=== PATIENT | female | born 1960 | race Two or more races ===

== ENCOUNTER 2019-10-29 08:54 | Day surgery (SDC) | payer MEDICAID ==
[2019-10-29] MEDS ORDERED: Sodium Chloride 0.9% 10 ML Syringe FLUSH PRN (09:00)
[2019-10-29] MEDS ORDERED: Lactated Ringers 1,000 ML IV SCH (09:00)
[2019-10-29] MEDS ORDERED: Midazolam 1 MG/ML 2 ML SDV ONE (09:41)
[2019-10-29] MEDS ORDERED: Propofol 200 MG/20 ML SDV ONE (09:41)
--- NOTE | 2019-10-29 09:46 | PCM.HPR ---
H & P Addendum review - H & P Addendum Review Date of Original H & P: 10/06/19 Date Reviewed: 10/29/19 Time Reviewed: 09:45 Patient was Examined: No Changes
[2019-10-29] MEDS ORDERED: Ondansetron 4 MG/2 ML SDV IVPUSH ONE (10:00)
--- NOTE | 2019-10-29 10:18 | PCM.OPNOTE ---
- General Post-Op/Procedure Note Date of Surgery/Procedure: 10/29/19 Operative Procedure(s): Colonoscopy Findings: Sig Tics Pre Op Diagnosis: Hx Polyps Post-Op Diagnosis: Same Anesthesia Technique: MAC Primary Surgeon: Bhanu Wade Anesthesia Provider: Magalie Alvarado Complications: None Condition: Good
--- NOTE | 2019-10-29 14:50 | OR ---
Date of Procedure: 10/29/2019 PREOPERATIVE DIAGNOSIS: History of colon polyps. POSTOPERATIVE DIAGNOSIS: Sigmoid diverticulosis. PROCEDURE: Colonoscopy. ANESTHESIA: IV sedation. DESCRIPTION OF PROCEDURE: The patient was brought to the procedure room where she was placed on her left side and IV sedation administered. Digital rectal exam was performed which was normal. Colonoscope was inserted and advanced to the level of the cecum with minimal difficulty getting through the ascending colon, requiring some pressure on the abdomen. Cecal position was confirmed by identifying the appendiceal lumen and ileocecal valve. Prep was good and surfaces were well visualized. Upon withdrawing the scope, the ascending, transverse, and descending colon were normal in appearance. Sigmoid colon had multiple diverticula present. Rectum was normal and retroflexion was normal. Air was removed and the scope withdrawn. The patient tolerated the procedure well and returned to Recovery in stable condition. Recommend surveillance colonoscopy again in 5 years. GILBERTO LOWE MD /[id number]
== END 2019-10-29 11:13 | disposition home or self-care (01) ==
LOC: LL.SDS 08:54
PROVIDERS: ATTEND Surgery
DX: Z12.11 Encounter for screening for malignant neoplasm of colon (principal); K57.30 Diverticulosis of large intestine without perforation or abscess without bleeding; I12.9 Hypertensive chronic kidney disease with stage 1 through stage 4 chronic kidney disease, or unspecified chronic kidney disease; N18.3 Chronic kidney disease, stage 3 (moderate); E03.9 Hypothyroidism, unspecified; E66.9 Obesity, unspecified; F33.0 Major depressive disorder, recurrent, mild; M17.12 Unilateral primary osteoarthritis, left knee; R73.03 Prediabetes; Z88.8 Allergy status to other drugs, medicaments and biological substances; Z91.011 Allergy to milk products; Z91.018 Allergy to other foods; Z91.02 Food additives allergy status; Z91.09 Other allergy status, other than to drugs and biological substances; Z68.41 Body mass index [BMI] 40.0-44.9, adult; Z86.010 Personal history of colon polyps; Z79.51 Long term (current) use of inhaled steroids; Z79.899 Other long term (current) drug therapy
CPT/HCPCS: 45378; J2250; J2405; J2704; J7120

== ENCOUNTER 2024-11-05 08:01 | Day surgery (SDC) | payer MEDICAID ==
[~2024-11-05 08:01] MED LIST: Propofol 200 MG/20 ML SDV ONE; Sodium Chloride 0.9% 10 ML Syringe FLUSH PRN
[2024-11-05] MEDS: Lactated Ringers 1,000 ML IV SCH (08:49)
[2024-11-05] MEDS ORDERED: Propofol 200 MG/20 ML SDV ONE (09:58)
== END 2024-11-05 10:45 | disposition home or self-care (01) ==
LOC: LL.SDS 08:01
PROVIDERS: ATTEND Surgery
DX: Z12.11 Encounter for screening for malignant neoplasm of colon (principal); D12.2 Benign neoplasm of ascending colon; K57.30 Diverticulosis of large intestine without perforation or abscess without bleeding; Z86.0100 Personal history of colon polyps, unspecified; E11.9 Type 2 diabetes mellitus without complications; E03.9 Hypothyroidism, unspecified; I10 Essential (primary) hypertension; E78.5 Hyperlipidemia, unspecified; K21.9 Gastro-esophageal reflux disease without esophagitis; J45.909 Unspecified asthma, uncomplicated; F32.A Depression, unspecified; E66.9 Obesity, unspecified; Z68.42 Body mass index [BMI] 45.0-49.9, adult; Z79.890 Hormone replacement therapy; Z79.84 Long term (current) use of oral hypoglycemic drugs; Z79.899 Other long term (current) drug therapy
CPT/HCPCS: 82947; J2704; J7120